=== PATIENT | male | born 1955 | race Caucasian/White ===

== ENCOUNTER → 2016-11-30 | Outpatient (CLI) | payer OTHER ==
--- NOTE | 2016-11-30 17:45 | Diagnostic Imaging Report ---
EXAM: Three views of the right index finger. INDICATION: Laceration to the second PIP joint. FINDINGS: There is no fracture, dislocation or radiopaque foreign body. There is soft tissue swelling around the second PIP joint. IMPRESSION: No fracture is seen. Report given to MARIO Curtis at 5:44 p.m. 11/30/2016/dave Dictated by: Dictated on workstation # [id number]
== END ==
LOC: RAD 17:16
PROVIDERS: ATTEND Nurse Practitioner Family
DX: M79.644 Pain in right finger(s) (principal)
CPT/HCPCS: 73140